=== PATIENT | male | born 1940 | race Caucasian/White ===

== ENCOUNTER → 2016-09-28 | Outpatient (CLI) | payer MEDICARE ==
[~2016-09-28] MED LIST: ASPIRIN81 MG PO; ASPRIN OR; LIPITOR80 MG PO; LISINOPRIL 5MG T5 MG NG; METOPROLOL 25 M25 MG PO; NITROSTAT 0.4M0.4 MG SL; PERCOCET 325 MG1 TA3 PO; TYLENOL W/CODEI1 TA2 PO
--- NOTE | 2016-09-28 13:29 | RADIOLOGY REPORT PS360 ---
CHEST(2 VIEWS-NOT PORTABLE) HISTORY: NURSING HOME MEDICATION USE ORDERING PHYSICIAN: WILLIAN OZUNA PATIENT AGE: 76 years COMPARISON: 06/15/2012 FINDINGS: Mild cardiomegaly without failure. Chronic changes are present in the lingula and right lung base medially. Not significant change from 06/15/2012. Upper lobes are clear. There is mild pleural lipomatosis. There is ankylosis of the thoracic spine.. No acute bony abnormalities. IMPRESSION: 1. No change from 06/15/2012 with no acute finding. 2. Cardiomegaly with chronic changes
--- NOTE | 2016-09-28 13:29 | RADIOLOGY REPORT PS360 ---
CHEST(2 VIEWS-NOT PORTABLE) HISTORY: HALFWAY MEDICATION USE ORDERING PHYSICIAN: WILLIAN OZUNA PATIENT AGE: 76 years COMPARISON: 06/15/2012 FINDINGS: Mild cardiomegaly without failure. Chronic changes are present in the lingula and right lung base medially. Not significant change from 06/15/2012. Upper lobes are clear. There is mild pleural lipomatosis. There is ankylosis of the thoracic spine.. No acute bony abnormalities. IMPRESSION: 1. No change from 06/15/2012 with no acute finding. 2. Cardiomegaly with chronic changes
== END ==
LOC: RAD 11:21
DX: L40.0 Psoriasis vulgaris (principal); Z79.899 Other long term (current) drug therapy